=== PATIENT | female | born 1970 | race Caucasian/White ===

== ENCOUNTER 2017-03-31 17:40 | Inpatient (IN) | payer BC, OTHER ==
[~2017-03-31] VITALS: Ht 157.5 cm; Wt 72.0 kg
[2017-03-31] MEDS ORDERED: morphine 4 MG/ML VIAL IV STA (20:00)
[2017-03-31] MEDS ORDERED: ONDANSETRON 4 MG INJ IV STA (20:00)
[2017-03-31] MEDS ORDERED: SOD CHLORIDE 0.9% 1,000 ML IV STA (20:00)
--- NOTE | 2017-03-31 20:23 | ERD ---
ER Documentation Chief Complaint Date/Time DATE: 03/31/17 TIME: 20:20 Chief Complaint Complains of abdominal pain x 3 days HPI 46-year-old female presents here in emergency department for complaints of left lower abdominal, pelvic pain for 3 days. Patient was diagnosed to have a left ovarian cyst, patient's seen her OB doctor today, was given prescription for pain medication, [place] and ibuprofen, has not filled prescriptions yet. Patient was told to come here in emergency department if pain got worse. Patient states that the pain got worse today, sharp pain 9/10 scale, is worse upon movement. Patient was told that she may need a surgery for possible removal of the foreign sister patient denies any fever or chills. Patient denies any cramping. Denies any hematuria or dysuria. ROS All systems reviewed and are negative except as per history of present illness. Medications Home Meds Reported Medications [none] Unknown Strength No Conflict Check 03/31/17 Allergies Allergies: Coded Allergies: No Known Allergy (Unverified , 03/31/17) PMhx/Soc Medical and Surgical Hx: pt denies Medical Hx, pt denies Surgical Hx FmHx Family History: No coronary disease, No diabetes, No other Physical Exam Vitals Vital Signs Date Time Temp Pulse Resp B/P Pulse Ox O2 Delivery O2 Flow Rate FiO2 03/31/17 17:46 98.3 100 20 138/73 95 Physical Exam GENERAL: The patient is well developed and appropriate for usual state of health, in no apparent distress. CHEST: Clear to auscultation bilaterally. There are no rales, wheezes or rhonchi. HEART: Regular rate and rhythm. No murmurs, clicks, rubs or gallops. No S3 or S4. ABDOMEN: Soft, nontender and nondistended. Good bowel sounds. No rebound or guarding. No gross peritonitis. No gross organomegaly or masses. No Aguilar sign or McBurney point tenderness. BACK: No midline or flank tenderness. EXTREMITIES: Equal pulses bilaterally. There is no peripheral clubbing, cyanosis or edema. No focal swelling or erythema. Full range of motion. Grossly neurovascularly intact. NEURO: Alert and oriented. Cranial nerves 2-12 intact. Motor strength in all 4 extremities with 5/5 strength. Sensation grossly intact. Normal speech and gait. SKIN: There is no apparent rash or petechia. The skin is warm and dry. HEMATOLOGIC AND LYMPHATIC: There is no evidence of excessive bruising or lymphedema. No gross cervical, axillary, or inguinal lymphadenopathy. Result Diagram: 03/31/17203403/31/172034 Results 24 hrs Laboratory Tests Test 03/31/17 20:35 White Blood Count 7.110^3/ul Red Blood Count 5.5710^6/ul Hemoglobin 11.2g/dl Hematocrit 35.7% Mean Corpuscular Volume 64.1fl Mean Corpuscular Hemoglobin 20.1pg Mean Corpuscular Hemoglobin Concent 31.4g/dl Red Cell Distribution Width 16.2% Platelet Count 38750^3/UL Mean Platelet Volume fl Neutrophils % 45.8% Lymphocytes % 44.4% Monocytes % 7.5% Eosinophils % 1.3% Basophils % 0.7% Nucleated Red Blood Cells % 0.0/100WBC Neutrophils # 3.210^3/ul Lymphocytes # 3.110^3/ul Monocytes # 0.510^3/ul Eosinophils # 0.110^3/ul Basophils # 0.110^3/ul Nucleated Red Blood Cells # 0.010^3/ul Sodium Level 141mmol/L Potassium Level 3.7mmol/L Chloride Level 101mmol/L Carbon Dioxide Level 26mmol/L Anion Gap 18 Blood Urea Nitrogen 14mg/dl Creatinine 0.76mg/dl Glucose Level 146mg/dl Calcium Level 9.0mg/dl Total Bilirubin 0.1mg/dl Direct Bilirubin 0.00mg/dl Indirect Bilirubin 0.1mg/dl Aspartate Amino Transf (AST/SGOT) 19IU/L Alanine Aminotransferase (ALT/SGPT) 33IU/L Alkaline Phosphatase 77IU/L Total Protein 7.3g/dl Albumin 4.5g/dl Globulin 2.80g/dl Albumin/Globulin Ratio 1.60 Lipase 127U/L Current Medications Medications (Trade) Dose Ordered Sig/Juan Route PRN Reason Start Time Stop Time Status Last Admin Dose Admin Sodium Chloride (NS) 1,000 ml @ 1,000 mls/hr Q1H STAT IV 03/31/17 20:00 03/31/17 20:59 DC 03/31/17 20:36 Morphine Sulfate (morphine) 4 mg ONCE STAT IV 03/31/17 20:00 03/31/17 20:03 DC 8/7/17 20:36 Ondansetron HCl (Zofran Inj) 4 mg ONCE STAT IV 03/31/17 20:00 03/31/17 20:03 DC 03/31/17 20:35 Patient was given medication for pain here in emergency department, after treatment, patient verbalized feeling much better. Patient's pain is improved.Patient was given Zofran here in the emergency department. After treatment, patient was able to tolerate po fluids here in the emergency department without any vomiting. There is no signs and symptoms of dehydration. Normal saline IV bolus was given here in emergency department for rehydration, patient tolerated IV fluids. PROCEDURE: Pelvic ultrasound. CLINICAL INDICATION: Pelvic pain TECHNIQUE: Mccain scale, color doppler, spectral doppler ultrasound of the pelvis was performed with transabdominal and transvaginal transducers. COMPARISON: No prior studies are available for comparison. FINDINGS: Uterus: Status post hysterectomy. Ovaries: Normal appearance of the right ovary. Enlarged left ovary due to the presence of a large cyst containing echogenic debris. Ovarian blood flow appears symmetric. Free fluid: None. Measurements: Right ovary: 3.0 x 1.6 x 1.9 cm Left ovary: 7.8 x 6.1 x 6.8 cm IMPRESSION: Status post hysterectomy. Normal appearance of the right ovary. 7.8 cm left ovarian cyst containing a small amount of echogenic material. MRI of the pelvis is suggested to exclude solid enhancing components. RPTAT: AADD .aThir Kyle MD, MD Date Time Electronically viewed and signed by .Tahir Kyle MD, on 03/31/2017 20:48 .B/ CC: EMELY CUENCA NP Procedures/MDM Medical Decision Making: Patient has a large ovarian cyst causing severe pain at 7.8 cm, no s/s of ovarian torsion at this time, attempted to contact patient' s OB specialist multiple times, Dr Monalisa Art, unable to get response, I discussed the case with OB laborist, Dr. Luther, will admit patient for further pain management and possible surgical intervention in the morning. I discussed this case with the patient, agrees with plan at this time. Patient is stable at this time. Pain is controlled at this time. Departure Diagnosis: Primary Impression: Ovarian cyst Laterality: left Qualified Code: N83.202 - Cyst of left ovary Condition: Stable EMELY CUENCA NP Mar 31, 2017 20:23
--- NOTE | 2017-03-31 20:48 | RADRPT ---
PROCEDURE: Pelvic ultrasound. CLINICAL INDICATION: Pelvic pain TECHNIQUE: Mccain scale, color doppler, spectral doppler ultrasound of the pelvis was performed with transabdominal and transvaginal transducers. COMPARISON: No prior studies are available for comparison. FINDINGS: Uterus: Status post hysterectomy. Ovaries: Normal appearance of the right ovary. Enlarged left ovary due to the presence of a large cyst conta ining echogenic debris. Ovarian blood flow appears symmetric. Free fluid: None. Measurements: Right ovary: 3.0 x 1.6 x 1.9 cm Left ovary: 7.8 x 6.1 x 6.8 cm IMPRESSION: Status post hysterectomy. Normal appearance of the right ovary. 7.8 cm left ovarian cyst containing a small amount of echogenic material. MRI of the pelvis is sugge sted to exclude solid enhancing components. RPTAT: AADD .Tahir Kyle MD, Date Time Electronically viewed and signed by .Tahir Kyle MD, on 03/31/2017 20:48 .B/
[2017-03-31 20:56] LABS: ABNORMAL IP MESSAGE 1; BASOPHIL # 0.1 10^3/ul (0.0-0.1); BASOPHILS % 0.7 % (0.0-2.0); EOSINOPHILS # 0.1 10^3/ul (0.0-0.5); EOSINOPHILS % 1.3 % (0.0-7.0); HEMATOCRIT 35.7 % (37.0-47.0); HEMOGLOBIN 11.2 g/dl (12.0-16.0); LYMPHOCYTES # 3.1 10^3/ul (0.8-2.9); LYMPHOCYTES % 44.4 % (15.0-51.0); MEAN CORPUSCULAR HEMOGLOBIN 20.1 pg (29.0-33.0); MEAN CORPUSCULAR HGB CONC 31.4 g/dl (32.0-37.0); MEAN CORPUSCULAR VOLUME 64.1 fl (82.0-101.0); MONOCYTE # 0.5 10^3/ul (0.3-0.9); MONOCYTES % 7.5 % (0.0-11.0); NEUTROPHIL # 3.2 10^3/ul (1.6-7.5); NEUTROPHILS % 45.8 % (39.0-77.0); PLATELET COUNT 209 10^3/UL (140-415); RED BLOOD COUNT 5.57 10^6/ul (4.20-5.40); RED CELL DISTRIBUTION WIDTH 16.2 % (11.5-14.5); WHITE BLOOD COUNT 7.1 10^3/ul (4.8-10.8)
[2017-03-31 21:05] LABS: POSITIVE DIFF @See below
[2017-03-31 21:22] LABS: ALBUMIN 4.5 g/dl (3.3-4.9); ALBUMIN/GLOBULIN RATIO 1.6; BILIRUBIN,INDIRECT 0.1 mg/dl (0-1.1); BILIRUBIN,TOTAL 0.1 mg/dl (0.2-1.3); CREATININE 0.76 mg/dl (0.44-1.00); POTASSIUM 3.7 mmol/L (3.5-5.1); TOTAL PROTEIN 7.3 g/dl (6.1-8.1)
[2017-03-31 23:13] VITALS: TEMP 98.6
[2017-03-31] MEDS ORDERED: morphine 2 MG INJ IV ONE (23:30)
[2017-04-01] VITALS (18 sets, daily range): BP systolic 119–142; BP diastolic 63–76; PULSE 88–98; RESP 13–21; Ht 157.5 cm; Wt 72.0 kg
[2017-04-01] MEDS ORDERED: ASPI-664 PO (00:09)
[2017-04-01] MEDS ORDERED: METF-480 PO (00:09)
[2017-04-01] MEDS ORDERED: SITA50TA2 PO (00:09)
[2017-04-01] MEDS: DEXTROSE 5%-LR 1,000 ML IV SCH ×2 (01:11→08:35)
[2017-04-01] MEDS ORDERED: morphine 2 MG INJ IV PRN (03:00)
[2017-04-01 03:09] LABS: ADD UMIC NO; UR ASCORBIC ACID NEGATIVE (NEGATIVE); UR BILIRUBIN (Dip) NEGATIVE (NEGATIVE); UR BLOOD (Dip) NEGATIVE (NEGATIVE); UR CLARITY CLEAR (CLEAR); UR COLOR YELLOW (YELLOW); UR GLUCOSE (Dip) 3+ mg/dL (NEGATIVE); UR KETONES (Dip) TRACE mg/dL (NEGATIVE); UR LEUKOCYTE ESTERASE (Dip) NEGATIVE Leu/ul (NEGATIVE); UR NITRITE (Dip) NEGATIVE (NEGATIVE); UR SPECIFIC GRAVITY (Dip) 1.025 (1.003-1.030); UR TOTAL PROTEIN (Dip) NEGATIVE (NEGATIVE); UR UROBILINOGEN (Dip) NEGATIVE (NEGATIVE)
[2017-04-01] MEDS ORDERED: metFORMIN 850 MG TAB PO SCH ×2 (07:50→17:55)
[2017-04-01] MEDS ORDERED: LINAGLIPTIN 5 MG TABLET PO SCH (09:00)
[2017-04-01] MEDS: LACTATED RINGER'S 1,000 ML IV SCH ×3 (12:16→22:41)
[2017-04-01] MEDS ORDERED: DESFLURANE 15 MIN ONE (14:30)
[2017-04-01] MEDS ORDERED: PROPOFOL 20 ML ONE (19:43)
[2017-04-01] MEDS ORDERED: LIDOCAINE 2% (SDV) 5 ML INJ ONE (19:43)
[2017-04-01] MEDS ORDERED: ROCURONIUM 50 MG INJ ONE (19:43)
[2017-04-01] MEDS ORDERED: MIDAZOLAM 1 MG/ML 2 ML INJ ONE (19:43)
[2017-04-01] MEDS ORDERED: ROPIVACAINE 0.5 % 30 ML VIAL ONE ×2 (19:54→22:26)
[2017-04-01] MEDS ORDERED: CEFAZOLIN 1 GM INJ ONE (20:08)
[2017-04-01] MEDS ORDERED: DEXAMETHASONE 4 MG/ML 1 ML INJ ONE (20:12)
[2017-04-01] MEDS ORDERED: FAMOTIDINE 20 MG INJ ONE (20:12)
[2017-04-01] MEDS ORDERED: ONDANSETRON 4 MG INJ ONE ×2 (20:12→22:59)
[2017-04-01] MEDS ORDERED: KETOROLAC 30 MG INJ ONE (21:52)
[2017-04-01] MEDS ORDERED: PROCHLORPERAZINE 10 MG INJ IV PRN (22:00)
[2017-04-01] MEDS ORDERED: DIPHENHYDRAMINE 50 MG INJ IV PRN (22:00)
[2017-04-01] MEDS ORDERED: hydrALAzine 20 MG INJ IV PRN (22:00)
[2017-04-01] MEDS ORDERED: METOCLOPRAMIDE 10 MG INJ IV PRN (22:00)
[2017-04-01] MEDS ORDERED: ONDANSETRON 4 MG INJ IV PRN ×2 (22:00→23:00)
[2017-04-01] MEDS ORDERED: MEPERIDINE 25 MG INJ IV PRN (22:00)
[2017-04-01] MEDS ORDERED: HYDROmorphONE (0.2 MG/ML) 10ML SYG IV PRN (22:00)
[2017-04-01] MEDS ORDERED: LABETALOL HCL 20MG INJ IV PRN (22:00)
[2017-04-01] MEDS ORDERED: SUGAMMADEX SODIUM 200 MG/2 ML VIAL IV ONE (22:17)
--- NOTE | 2017-04-01 22:55 | OPR ---
Date/Time of Note Date/Time of Note DATE: 04/01/17 TIME: 22:50 Operative Report Procedure Date: Apr 01, 2017 Preoperative Diagnosis ACUTE AND CHRONIC ABDOMINAL PAIN LARGE LEFT OVARIAN CYST PELVIC ADHESIONS Postoperative Diagnosis SAME BILATERAL SEVERE BOWEL TO OVARY ADHESIONS Operation Performed PELVISCOPY EXPLORATORY LAPAROTOMY LSO LYSIS OF ADHESIONS ENTEROLYSIS Surgeon: JESUSITA CA MD Anesthesia Type: general Anesthesiologist: VERA HUGHES DO Estimated Blood Loss: 50 - 100 ml's Transfusion Required: no Specimens LEFT OVARY AND TUBE Complications: no Pt Condition Post Procedure: stable Disposition: PACU JESUSITA CA MD Apr 01, 2017 22:55
[2017-04-01] MEDS ORDERED: HYDROmorphONE (0.2 MG/ML) 10ML SYG IV ONE (22:59)
[2017-04-01] MEDS ORDERED: HYDROmorphONE 1 MG/ML SYG IV PRN (23:00)
[2017-04-01] MEDS: HYDROmorphONE (0.2 MG/ML) 10ML SYG IV PRN ×3 (23:00→23:48)
[2017-04-01] MEDS: KETOROLAC 30 MG INJ IV SCH (23:00)
[2017-04-01] MEDS ORDERED: DIPHENHYDRAMINE 50 MG CAP PO PRN (23:00)
[2017-04-01] MEDS ORDERED: HYDROCODONE/APAP (5/325) TAB PO PRN (23:00)
[2017-04-01] MEDS ORDERED: ZOLPIDEM 5 MG TAB PO PRN (23:00)
[2017-04-02] VITALS (14 sets, daily range): BP systolic 98–145; BP diastolic 55–77; PULSE 82–100; RESP 13–18
[2017-04-02] MEDS ORDERED: GLUCOSE GEL 15 GRAM TUBE BUCCAL PRN
[2017-04-02] MEDS ORDERED: DEXTROSE 50% 50 ML SYRINGE IV PRN ×2
[2017-04-02] MEDS ORDERED: GLUCOSE GEL 15 GRAM TUBE PO PRN ×2
[2017-04-02] MEDS ORDERED: GLUCAGON 1 MG INJ IM PRN
[2017-04-02] MEDS: METOCLOPRAMIDE 10 MG TAB PO SCH ×5 (00:29→23:10)
[2017-04-02] MEDS: HYDROCODONE/APAP (5/325) TAB PO PRN ×2 (00:33→12:36)
[2017-04-02 01:12] LABS: ADD UMIC NO; UR ASCORBIC ACID NEGATIVE (NEGATIVE); UR BILIRUBIN (Dip) NEGATIVE (NEGATIVE); UR BLOOD (Dip) NEGATIVE (NEGATIVE); UR CLARITY CLEAR (CLEAR); UR COLOR COLORLESS (YELLOW); UR GLUCOSE (Dip) 3+ mg/dL (NEGATIVE); UR KETONES (Dip) 1+ mg/dL (NEGATIVE); UR LEUKOCYTE ESTERASE (Dip) NEGATIVE Leu/ul (NEGATIVE); UR NITRITE (Dip) NEGATIVE (NEGATIVE); UR RBC 0 /HPF (0-5); UR SPECIFIC GRAVITY (Dip) 1.011 (1.003-1.030); UR TOTAL PROTEIN (Dip) NEGATIVE (NEGATIVE); UR UROBILINOGEN (Dip) NEGATIVE (NEGATIVE)
--- NOTE | 2017-04-02 03:03 | OPR ---
DATE OF OPERATION: 04/01/2017 PREOPERATIVE DIAGNOSES: 1. Acute and chronic abdominal pain. 2. Large left ovarian cyst. 3. Pelvic adhesions. POSTOPERATIVE DIAGNOSES: 1. Acute and chronic abdominal pain. 2. Large left ovarian cyst. 3. Pelvic adhesions. 4. Bilateral severe zmuul-yr-bcznu adhesions. OPERATION PERFORMED: Pelviscopy, exploratory laparotomy, left salpingo-oophorectomy, lysis of adhesions, enterolysis. SURGEON: Sarahi Art MD ANESTHESIOLOGIST: Farshad Álvarez MD ANESTHESIA: General. OPERATIVE PROCEDURE: The patient was given general anesthesia, placed in the supine position, the Guajardo catheter was placed in the bladder, the abdomen was prepped and draped, and a small incision was made on the inferior edge of the umbilicus and the abdomen was opened in layers. We placed 2 sutures of 0-Vicryl on either side of the fascia. The peritoneum was entered bluntly. This Radha was then inserted and the CO2 was insufflated. A second trocar and cannula were placed suprapubically over the midline. The visualization of the pelvic organs revealed that there were adhesions of the sigmoid colon to the cecum and in between them underneath, there was a large ovarian cyst of about 7 cm in length. The right ovary was also attached to the cecum and to the lateral wall of the pelvis. There were adhesions of the bowel on both sides to the anterior abdominopelvic cavity, as well as to the peritoneum behind the bladder. The decision at this time was made of an exploratory laparotomy due to the severity of the bowel adhesion. The instruments were removed, the gas was deflated, and the fascia was closed with an 0-Vicryl, 2-0 Vicryl for the subcutaneous tissue, 3-0 Monocryl subcuticular to the skin, and Dermabond was used on the skin area. Going back to the suprapubic area, the little 5-mm trocar incision was increased on either side for about 10 cm in length. The abdominal cavity was reached and a self-retaining retractor was then placed. At this time, the enterolysis was done, the right side of the colon from the left side and also the ovary from the sigmoid colon on the left side. The same thing was done on the right ovary that was adherent to the sacrum and was also from the cecum. The ovary was also attached to the posterior peritoneum behind the bladder and that was also from it. The left ovary was normal with no cysts. The left ovary was dehisced from the adhesion from the bowel and at this time dark, wine-color hemorrhagic fluid came off the cyst and some of that was collected for cell block. The ovary was very mushy due to the fact that it had been hemorrhagic and had been growing for the last few days. The infundibulopelvic ligament at this time was located and with a Martha clamp, the excision of the tube and ovary was done. A small portion of ovary was left that was adherent to the bowel and it was left untouched because of that. The base of the infundibulopelvic ligament was sutured with figure-of-8 sutures with number 2-0 Vicryl and reinforced with the same and continues 2-0 Vicryl suture was also used. Washings of the cavity was done with water to visualize for bleeders and the cavity was felt to be dry. The left adnexal area was covered with Interceed for prevention of adhesions and the same thing was done to the right ovary, that was covered with Interceed to prevent adhesions. The right tube also, a small amount of the tube was also present and was also covered for prevention of adhesions. The cavity was cleaned out and the sponge counts and instrument counts were correct at this time. The peritoneum was closed with a 2-0 Vicryl, the fascia was closed with 0-PDS looped suture, 2-0 Vicryl for the subcutaneous tissue, and 2-0 Monocryl subcuticular to the skin. Dermabond and Steri-Strips were applied. The patient tolerated the procedure well and left the OR awake and stable. Sponge counts and instrument counts were correct and intravenous antibiotics were given for prophylaxis. Blood loss was minimal and the urine was clear at the end of the procedure. Dictated By: Sarahi Art MD /wanda/ann /Document#: [id number]
[2017-04-02 05:16] LABS: ABNORMAL IP MESSAGE 1; BASOPHILS % 0.1 % (0.0-2.0); HEMATOCRIT 32.6 % (37.0-47.0); HEMOGLOBIN 10.1 g/dl (12.0-16.0); LYMPHOCYTES # 0.8 10^3/ul (0.8-2.9); LYMPHOCYTES % 7.2 % (15.0-51.0); MEAN CORPUSCULAR HEMOGLOBIN 19.4 pg (29.0-33.0); MEAN CORPUSCULAR VOLUME 62.7 fl (82.0-101.0); MONOCYTE # 0.4 10^3/ul (0.3-0.9); MONOCYTES % 3.8 % (0.0-11.0); NEUTROPHIL # 10.3 10^3/ul (1.6-7.5); NEUTROPHILS % 88.5 % (39.0-77.0); PLATELET COUNT 174 10^3/UL (140-415); RED CELL DISTRIBUTION WIDTH 16.2 % (11.5-14.5); WHITE BLOOD COUNT 11.6 10^3/ul (4.8-10.8)
[2017-04-02 05:23] LABS: POSITIVE DIFF @See below
[2017-04-02] MEDS: KETOROLAC 30 MG INJ IV SCH ×4 (05:33→22:11)
[2017-04-02] MEDS: CEFAZOLIN 1 GM/50 ML (PMX) 50 ML IVPB SCH ×3 (05:34→22:10)
[2017-04-02 05:38] LABS: CREATININE 0.41 mg/dl (0.44-1.00); POTASSIUM 3.9 mmol/L (3.5-5.1)
[2017-04-02] MEDS: LACTATED RINGER'S 1,000 ML IV SCH ×2 (05:41→10:16)
[2017-04-02] MEDS ORDERED: ACCU-CHEK XX SCH (06:00)
--- NOTE | 2017-04-02 07:25 | PREOPHP ---
DATE OF ADMISSION: 03/31/2017 HISTORY OF PRESENT ILLNESS: This is a 44-year-old female, 4, para 4. This patient has been complaining of severe left lower quadrant pain. She was diagnosed with an ovarian cyst. She has a history of having a hysterectomy seven years ago, abdominal hysterectomy, both ovaries were left in. And also at that time, she had a Roberts procedure for bladder lifting. This patient has been complaining of left lower quadrant pain. She has been diabetic as well, on metformin and Januvia, and she saw me a couple of days ago with excruciating pain where the examination revealed that she has a left ovarian cyst, which is large and painful. She was not able to perform her regular activities due to that. She saw me in the office and she was given Vicodin and ibuprofen, and an authorization was getting sent for laparoscopic evaluation of the left ovary that was cystic and painful on examination to rule out the possibility of torsion. She was advised to come to the ER if the pain gets worse. The patient did come to the emergency room. She was admitted by Dr. Luther due to the severity of her pain. The patient is being kept NPO, and laparoscopic left salpingo- oophorectomy will be proposed with the possibility of an exploratory laparotomy in case of need. The patient is already 44 years old and she does not need more children nor does she have a uterus. She is having hot flashes as well for perimenopause. She has a history of possible endometriosis as well. The patient has also a history of having cystitis, pyelonephritis for diabetes that has been at times uncontrolled. ALLERGIES: SHE HAS NO ALLERGIES. MEDICATIONS: She is also on aspirin. FAMILY HISTORY: Noncontributory. REVIEW OF SYSTEMS: GENITOURINARY: Only for severe pelvic pain, constantly on the left lower quadrant. This has happened for a while, months, getting worse lately. PHYSICAL EXAMINATION: VITAL SIGNS: She weighs 163 pounds. She is 5 feet tall. Blood pressure is 130/80, pulse 80, she is afebrile. HEENT: The head and neck is normal. CHEST: Clear. HEART: Normal sinus rhythm. LUNGS: Clear. BREASTS: Soft, nontender. No masses. ABDOMEN: Soft, very painful on the left lower quadrant where there is possible rebound tenderness with guarding as well. The bowel sounds are normal. She is voiding without complaints. EXTREMITIES: Normal with normal pulses. No edema. GENITOURINARY: The vaginal examination with an absent uterus and a mass on the left side that feels as an ovarian cyst that is possibly growing and with possibility of torsion with the size of about 5 to 6 cm. PLAN: The patient is admitted as an emergency for acute and chronic left lower quadrant pain with a large left ovarian cyst, intractable pelvic pain, possible endometriosis, possible ovarian torsion. She has been advised for the possibility of left salpingo-oophorectomy through the scope or an explore lap if it is necessary. She has been advised of the possible risk and possible complications of the procedure with her, alternatives and options. Written information was provided. She had no more questions, and agreed to go ahead with the procedure with full understanding and no more questions. Dictated By: Sarahi Art MD /wanda/mansi /Document#: [id number]
[2017-04-02] MEDS: metFORMIN 850 MG TAB PO SCH ×2 (08:32→17:19)
--- NOTE | 2017-04-02 11:05 | PN ---
Date/Time of Note Date/Time of Note DATE: 04/02/17 TIME: 11:04 Assessment/Plan Lines/Catheters IV Catheter Type (from Nrsg): Peripheral IV Guajardo in Place (from Nrsg): Yes Subjective 24 Hr Interval Summary DAY 1 POST EXPLORATORY LAPAROTOMY Constitutional: ambulates, flatus, no complaints Feeding: advancing diet Pain Control: well controlled Detailed Summary Eyes: no complaints ENT: no complaints Respiratory: no complaints Cardiovascular: no complaints Gastrointestinal: no complaints Genitourinary: no complaints Musculoskeletal: no complaints Skin: no complaints Neurologic: no complaints Endocrine: no complaints Lymphatic: no complaints Psychological: nl mood/affect, no complaints Immunologic: no complaints Exam/Review of Systems Vital Signs Vitals Vital Signs Date Time Temp Pulse Resp B/P Pulse Ox O2 Delivery O2 Flow Rate FiO2 04/02/17 08:19 97.8 80 18 107/60 98 04/02/17 08:10 Nasal Cannula 2.0 Intake and Output 04/01/17 04/01/17 04/02/17 15:00 23:00 07:00 Intake Total 1000 ml 2625 ml 1075 ml Output Total 1000 ml 1700 ml Balance 1000 ml 1625 ml -625 ml Exam Constitutional: alert, oriented, well developed Psych: nl mood/affect, no complaints Head: atraumatic, normocephalic Eyes: EOMI, nl conjunctiva, nl lids, nl sclera ENMT: mucosa pink and moist, nl external ears & nose, nl lips & teeth, nl nasal mucosa & septum Neck: non-tender, supple Respiratory: clear to auscultation, normal air movement Cardiovascular: nl pulses, regular rate and rhythm Gastrointestinal: nl liver, spleen, non-tender, soft Musculoskeletal: nl extremities to inspection, nl gait and stance Extremities: normal pulses Neurological: CREAM TESTER II-XII intact, nl mental status, nl speech, nl strength Skin: nl turgor, rash or lesions Lymph: nl lymph nodes Results Result Diagram: 04/02/17 0449 04/02/17 0449 JESUSITA CA MD Apr 02, 2017 11:05
[2017-04-02] MEDS: ACCU-CHEK XX SCH ×3 (12:37→21:00)
[2017-04-03 02:38] VITALS: BP 108/59; RESP 18
[2017-04-03 05:15] LABS: ABNORMAL IP MESSAGE 1; BASOPHIL # 0.1 10^3/ul (0.0-0.1); BASOPHILS % 0.6 % (0.0-2.0); EOSINOPHILS # 0.1 10^3/ul (0.0-0.5); EOSINOPHILS % 0.7 % (0.0-7.0); HEMATOCRIT 30.1 % (37.0-47.0); HEMOGLOBIN 9.1 g/dl (12.0-16.0); LYMPHOCYTES # 2.5 10^3/ul (0.8-2.9); MEAN CORPUSCULAR HGB CONC 30.2 g/dl (32.0-37.0); MEAN CORPUSCULAR VOLUME 62.8 fl (82.0-101.0); MONOCYTE # 0.6 10^3/ul (0.3-0.9); MONOCYTES % 7.1 % (0.0-11.0); NEUTROPHILS % 60.4 % (39.0-77.0); PLATELET COUNT 173 10^3/UL (140-415); RED BLOOD COUNT 4.79 10^6/ul (4.20-5.40); RED CELL DISTRIBUTION WIDTH 16.1 % (11.5-14.5); WHITE BLOOD COUNT 8.2 10^3/ul (4.8-10.8)
[2017-04-03 05:24] LABS: POSITIVE DIFF @See below
[2017-04-03] MEDS: CEFAZOLIN 1 GM/50 ML (PMX) 50 ML IVPB SCH (05:56)
[2017-04-03] MEDS: METOCLOPRAMIDE 10 MG TAB PO SCH (05:56)
[2017-04-03] MEDS: KETOROLAC 30 MG INJ IV SCH (05:56)
[2017-04-03 07:00] VITALS: BP 113/75; RESP 20
[2017-04-03] MEDS: ACCU-CHEK XX SCH (07:48)
[2017-04-03] MEDS ORDERED: LINAGLIPTIN 5 MG TABLET PO SCH (09:00)
--- NOTE | 2017-04-03 09:22 | PD.PPDC ---
[employer] Discharge Instruction Condition Patient Condition: Good Diet Diet: Resume Regular Diet Activity/Restrictions Activity: Normal Activity May Shower Restrictions: No Exercising No Lifting No Driving No Sexual Activity Nothing in the Vagina No [place] No Tampons, douche Wound/Drain Care Instructions Wound/Drain Care Instructions: Remove Steri Strips in 1 week Wash with soap and water Keep clean and dry Follow-up Follow-up with Physician: 2, Week/Weeks Return to clinic for [employer] Instructions: Fever greater than 101 Chills Worsening abdominal pain Excessive Vaginal Bleeding More than 2 pads per hour Unable to tolerate diet Surgical Instructions: Incisional Drainage Incisional Redness JESUSITA CA MD Apr 03, 2017 09:22
[2017-04-03] MEDS: metFORMIN 850 MG TAB PO SCH (09:31)
[2017-04-03] MEDS: HYDROCODONE/APAP (5/325) TAB PO PRN (09:31)
--- NOTE | 2017-04-03 20:26 | DS ---
DATE OF ADMISSION: 03/31/2017 DATE OF DISCHARGE: 04/03/2017 HISTORY OF PRESENT ILLNESS: This is a 46-year-old female, 4, para 4, patient with a complaint of severe left lower quadrant pain that has become chronic and acute, and she has visited different emergency rooms, where she was being told that she has a small ovarian cyst. The patient was examined in my office lately with the finding of a larger ovarian cyst and severe excruciating pain. She was being worked up surgery when she shows up to the emergency room at [facility], where she gets admitted due to the severity of her pain. The patient underwent a laparoscopy and an exploratory laparotomy for bowel adhesions and an excision of the ovarian cyst. The patient had lysis of adhesions, enterolysis. Both bowel from the cecum and sigmoid colon were stuck to each other and also underneath there was an ovarian cyst that was stuck to both ends of the right bowel and left bowel. The right ovary was normal, also with adhesions that were lysed, and she did better. After the procedure she was ambulatory. She was passing gases, tolerating diet, voiding well, and she is wanting to go home. The patient's laboratory testing showed a hemoglobin and hematocrit that were with signs of anemia. This patient has no symptoms of anemia. No chest pain. No shortness of breath. She is instructed to eat high levels of protein and start taking vitamins and iron. And she also had been sent home on her routine diabetic medication, where she is controlled. The incision is looking good and is healing well. She is dry and with no exudation, and she is passing gases and doing well. She is instructed to go home on ibuprofen and Vicodin p.r.n. She is to see me in the office in a week or earlier if she had any problems. She was instructed of how to take care of herself, and father instructions were given of what to do and not to do. She is stable in good conditions to go home. FINAL DIAGNOSES: Is left large ovarian cyst with severe pelvic adhesions and bowel adhesions. PROCEDURES DONE: Explore lap, lysis of adhesions and excision of the left ovarian cyst. Dictated By: Sarahi Art MD /wanda/stevenson /Document#: [id number]
== END 2017-04-03 10:00 | disposition home or self-care (01) | DRG 743 ==
LOC: FTE 17:40 → INTOOBSV 22:59 → MS1 22:59 → OBSVTOIN 04-02 11:49
PROVIDERS: ADMIT Obstetrics & Gynecology; ATTEND Obstetrics & Gynecology
PROC: 0UT10ZZ Resection of Left Ovary, Open Approach (ICD-10-PCS; 2017-04-01)
PROC: 0UN20ZZ Release Bilateral Ovaries, Open Approach (ICD-10-PCS; 2017-04-01)
PROC: 0DNH0ZZ Release Cecum, Open Approach (ICD-10-PCS; 2017-04-01)
PROC: 0DNN0ZZ Release Sigmoid Colon, Open Approach (ICD-10-PCS; 2017-04-01)
PROC: 0UT60ZZ Resection of Left Fallopian Tube, Open Approach (ICD-10-PCS; principal; 2017-04-01 19:00)
DX: N83.12 Corpus luteum cyst of left ovary (principal); E11.9 Type 2 diabetes mellitus without complications; N73.6 Female pelvic peritoneal adhesions (postinfective); K66.0 Peritoneal adhesions (postprocedural) (postinfection); Z79.84 Long term (current) use of oral hypoglycemic drugs; Z79.82 Long term (current) use of aspirin
CPT/HCPCS: 36415; 76830; 76856; 80051; 80053; 81003; 82565; 82962; 83690; 84520; 85025; 87086; 88305; 96361; 96374; 96375; 96376; 99217; G0378; J0690; J1100; J1170; J1885; J2250; J2270; J2405; J2795; J3010; J7030; J7120; J7121